=== PATIENT | female | born 1965 | race Two or more races ===

== ENCOUNTER → 2024-08-04 | Outpatient (CLI) | payer MEDICARE, MEDICAID, SELFPAY ==
[2024-08-04 14:48] LABS: Misc Send Out* See Sep Rpt
[2024-08-04 16:00] LABS: Basophils % (Auto) 1 % (0-2.5); Eosinophils # (Auto) 0.1 Thou/mm3 (0.0-0.5); Eosinophils % (Auto) 2 % (0-10); Hematocrit 39.7 % (36.0-46.0); Hemoglobin 13.3 g/dL (12.0-16.0); Immature Granulocytes % (Auto) 0 % (0-0); Immature Granulocytes Auto 0.03 Thou/mm3 (0.00-0.00); Lymphocytes # (Auto) 2.7 Thou/mm3 (1.0-4.8); Lymphocytes % (Auto) 31 % (10-50); Mean Corpuscular HGB Conc 33.5 g/dl (31.0-37.0); Mean Corpuscular Hemoglobin 28.1 pg (25.0-35.0); Mean Corpuscular Volume 84 fL (80-100); Monocytes # (Auto) 0.6 Thou/mm3 (0.0-0.8); Monocytes % (Auto) 7 % (0-12); Neutrophils # (Auto) 5.3 Thou/mm3 (1.8-7.7); Neutrophils % (Auto) 60 % (37-80); Nucleated Red Blood Cell % 0 /100 WBC (0); Platelet Count 181 Thou/mm3 (140-440); RDW Standard Deviation 40.5 fL (36.4-46.3); Red Blood Count 4.74 Miln/mm3 (4.00-5.20); White Blood Count 8.7 Thou/mm3 (3.6-11.0)
[2024-08-04 16:05] LABS: Prothrombin Time 11.4 Seconds (9.0-12.2)
[2024-08-04 16:31] LABS: Alanine Aminotransferase 15 U/L (10-49); Albumin, Serum 4.5 gm/dL (3.5-5.0); Alkaline Phosphatase 73 U/L (46-116); Aspartate Amino Transferase 21 U/L (0-34); Bilirubin,Direct 0.2 mg/dL (0.0-0.3); Bilirubin,Total 0.6 mg/dL (0.3-1.2); Potassium 4.7 mMol/L (3.4-5.1); Sodium 137 mMol/L (136-145); Total Protein 7.1 gm/dL (5.7-8.2)
[2024-08-10 06:59] LABS: Hepatitis A Antibody, Total* REACTIVE; Hepatitis B Core Ab,Total* NONREACTIVE
== END | disposition home or self-care (01) ==
LOC: COPL 13:55
PROVIDERS: PCP Nurse Practitioner Family; Referring Provider Nurse Practitioner Family; Visit Provider Nurse Practitioner Family
DX: K21.9 Gastro-esophageal reflux disease without esophagitis (principal); K74.60 Unspecified cirrhosis of liver
CPT/HCPCS: 36415; 80076; 81596; 82105; 83735; 84132; 84295; 85025; 85610; 86704; 86708

== ENCOUNTER → 2024-08-11 | Outpatient (CLI) | payer MEDICARE, MEDICAID, SELFPAY ==
--- NOTE | 2024-08-11 09:30 | XR_ITS ---
Examination: Abdomen sonogram, complete Date and time of exam: August 11, 2024 1026 hours INDICATIONS: Diagnosis cirrhosis several years ago. Technique: Multiple real-time grayscale transabdominal sonographic images of the abdomen have been obtained. Findings: Gallbladder not visualized Common bile duct incompletely visualized measuring 1.2 cm Pancreatic head 3.1 cm Aorta not enlarged Liver 14.7 cm fatty infiltration mildly lobular contour no focal liver lesions Normal hepatopedal portal venous flow Patent IVC Right kidney 8.6 x 4.7 x 3.6 cm renal cortex 1.1 cm Left kidney 10.2 x 4.5 x 3.2 cm renal cortex 1.6 cm Moderate renal parenchymal scar formation Spleen 10.1 cm IMPRESSION: Abnormally enlarged common bile duct 12 mm, clinical correlation advised, consider MRCP follow-up Liver 14.7 cm fatty infiltration lobular contour, primary hepatocellular disease pattern Small right kidney Bilateral renal cortical thinning Moderate bilateral renal parenchymal scar formation
== END | disposition home or self-care (01) ==
LOC: CDIM 09:59
PROVIDERS: PCP Internal Medicine Gastroenterology; Referring Provider Internal Medicine Gastroenterology; Visit Provider Internal Medicine Gastroenterology
DX: K76.0 Fatty (change of) liver, not elsewhere classified (principal); N28.89 Other specified disorders of kidney and ureter; K83.8 Other specified diseases of biliary tract
CPT/HCPCS: 76700

== ENCOUNTER → 2024-08-20 | Outpatient (BNVA) | payer MEDICARE, MEDICAID, SELFPAY | END | disposition home or self-care (01) | PROVIDERS: PCP Obstetrics & Gynecology; Referring Provider Obstetrics & Gynecology; Visit Provider Urology | DX: N39.0 Urinary tract infection, site not specified (principal); N27.0 Small kidney, unilateral; E11.9 Type 2 diabetes mellitus without complications; I10 Essential (primary) hypertension; Z94.4 Liver transplant status; Z87.440 Personal history of urinary (tract) infections; E78.00 Pure hypercholesterolemia, unspecified; K21.9 Gastro-esophageal reflux disease without esophagitis | CPT/HCPCS: 51701; 81003; 99212; G0463 ==

== ENCOUNTER → 2024-11-09 | Outpatient (CLI) | payer MEDICARE, SELFPAY ==
--- NOTE | 2024-11-09 10:00 | XR_ITS ---
Examination: MRI abdomen, without contrast Date and time of exam: November 09, 2024 1032 hours INDICATIONS: Onset right lower abdominal pain, months, enlarged common bile duct 12 mm on abdomen sonogram August 11, 2024 Technique: Multiple axial sagittal and coronal images of the abdomen have been obtained with the Siemens high-resolution 1.5 Rebeca MRI scanner. Images obtained include T2-weighted fat-suppressed sagittal sections, TR 3500, TE 46, T2 weighted coronal fat suppressed images, TR 3050, TE 84, T2-weighted transverse fat suppressed images, TR 3260, TE 63, proton density transverse images, TR 4720 TE 46, and T1 weighted coronal images, TR 560, TE 13. Findings: No focal liver or splenic lesion Normal sized common hepatic common bile duct no extrahepatic biliary stones No dilated pancreatic duct, no peripancreatic edema or pancreatic mass No ascites No hydronephrosis Aorta normal size IMPRESSION: No focal liver or splenic lesions No extrahepatic biliary tract obstruction, negative for common hepatic or common bile duct stones Negative for pancreatitis
== END | disposition home or self-care (01) ==
PROVIDERS: Referring Provider Internal Medicine Gastroenterology; Visit Provider Internal Medicine Gastroenterology
DX: R10.31 Right lower quadrant pain (principal); R10.13 Epigastric pain
CPT/HCPCS: 74181

== ENCOUNTER 2024-12-31 13:00 | Outpatient (RCR) | payer MEDICARE, MEDICAID, SELFPAY ==
--- NOTE | 2024-12-17 13:10 | PT.OIERPT ---
PT OP Initial Eval Patient Information Outpatient Physical Therapy Treatment Date: 12/17/24 Visit Reasons: Numbness in both hands Medical Diagnosis: R20.2 Treatment Dx #1: B hand weakness Treatment Dx #2: B hand pain Start of Care: 12/17/24 Date of Onset: 1 yr ago Smoking Status Smoking Status: Never smoker Initial Assessment Subjective: Pt is 59 yr old scottish speaking female who c/o B hand pain and numbness. The R hand index finger is the most painful. She reports B hand weakness and that she drops things. Pt is limited with HH chores to 5-10 mins when hands are painful. 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 Pt may benefit from skilled therapy to meet goals and has poor/fair rehab potential. Short Term and Retirement Goals 1. Ind with HEP 2. Improved school plant consultant strength B to at least 30 lbs 3. Pt will do HH chores x15 mins with <=3/10 B hand pain Treatment Plan ? 1. Manual therapy ? 2. Therex ? 3. Modalities as indicated, moist heat, ice, estim Frequency and Duration: 1-2x a week for 6 trial sessions. If progressing continue to 12. If not, reassess. Certification Dates: 12/17/24 to 03/17/25 Procedure Charges OP PT Eval Mod Complex 30 minutes: Yes
--- NOTE | 2024-12-31 13:57 | PT.ODAYNRPT ---
PT Outpatient Daily Note OP Daily Note Outpatient Physical Therapy Treatment Date: 12/31/24 Visit Reasons: Numbness in both hands Subjective: Pt reports B hand pain and pain is worse in the morning because hands are stiff and swollen. Objective: Please see flow sheet for ther ex list. Assessment: Pt instructed on light AROM and gripping interventions for hand, pt tolerated well. Plan: Continue with pOC. Length of Time (minutes) of Treatment: 30 Minutes Procedure Charges Therapeutic Exercise 30 minutes: Yes
== END 2025-01-06 23:59 | disposition home or self-care (01) ==
LOC: CPTX 13:00
DX: M79.642 Pain in left hand (principal); M79.641 Pain in right hand; R53.1 Weakness; R20.2 Paresthesia of skin; E11.9 Type 2 diabetes mellitus without complications
CPT/HCPCS: 97110; 97162

== ENCOUNTER 2025-01-09 13:55 | Emergency (ER) | payer MEDICARE, SELFPAY ==
[2025-01-09 14:19] VITALS: BP 130/77; PULSE 65; RESP 18; TEMP 36.6; O2SAT 98; BMI 29.5
--- NOTE | 2025-01-09 14:23 | XR_ITS ---
Examination: PA lateral chest 2 views TECHNIQUE: Upright PA and lateral chest 2 views Exam date and time: January 09, 2025, 1555 hours Comparison June 15, 2023 INDICATIONS: Weakness dizziness episodes 5 years FINDINGS: Normal heart size. Lungs are clear. Moderate osteopenia IMPRESSION: No active disease
--- NOTE | 2025-01-09 14:23 | EKG_ITS ---
[facility] Test Date: 2025-01-09 Pat Name: JOSTIN IRVING Department: Room: - Gender: Female Band Cutter: : 1965 Requested By: Chanell Ruano Order Number: [id number] Reading MD: Chanell Ruano Measurements Intervals Hagerman Rate: 60 P: 38 CO: 198 QRS: 44 QRSD: 100 T: 33 QT: 384 QTc: 385 Interpretive Statements SINUS RHYTHM NONSPECIFIC ST & T-WAVE ABNORMALITY No previous ECG available for comparison /store/S0/[id number]/ecg/[id number].pdf
--- NOTE | 2025-01-09 14:24 | PD.EDRME ---
Rapid Medical Screening Exam E Arrival date/time: 01/09/25 13:55 This is a 59-year-old female that comes in with complaints of dysuria. Patient states that about 2 weeks ago she was put on antibiotics for a UTI it did get better but the symptoms came back. Patient states this has happened before and she feels like the antibiotics sometimes do not help and her symptoms get worse. Patient also complains of feeling very dizzy and has had 2 near syncope episodes. Patient denies fever patient complains of abdominal pain and back pain. Patient does have a history of high blood pressure, diabetes, hyperlipidemia, and is status post liver transplant. I have greeted and performed a focused initial assessment of this patient. Initial appropriate labs ordered at this time. A comprehensive ED assessment and evaluation of the patient and analysis of all test and completion of medical decision making process will be conducted by additional ED provider. Chief Complaint: Urogenital-Female Time Seen by Provider: 01/09/25 14:06 Vital signs: Vital Signs Temperature 97.8 F 01/09/25 14:19 Pulse Rate 65 01/09/25 14:19 Respiratory Rate 18 01/09/25 14:19 Blood Pressure 130/77 01/09/25 14:19 Pulse Oximetry (%) 98 01/09/25 14:19 Oxygen Delivery Method Room Air 01/09/25 14:19
[2025-01-09 15:16] LABS: Basophils % (Auto) 0 % (0-2.5); Eosinophils # (Auto) 0.2 Thou/mm3 (0.0-0.5); Eosinophils % (Auto) 2 % (0-10); Hematocrit 40.5 % (36.0-46.0); Hemoglobin 13.8 g/dL (12.0-16.0); Immature Granulocytes % (Auto) 0 % (0-0); Immature Granulocytes Auto 0.03 Thou/mm3 (0.00-0.00); Lymphocytes # (Auto) 2.8 Thou/mm3 (1.0-4.8); Lymphocytes % (Auto) 32 % (10-50); Mean Corpuscular HGB Conc 34.1 g/dl (31.0-37.0); Mean Corpuscular Hemoglobin 28.6 pg (25.0-35.0); Mean Corpuscular Volume 84 fL (80-100); Monocytes # (Auto) 0.7 Thou/mm3 (0.0-0.8); Monocytes % (Auto) 8 % (0-12); Neutrophils # (Auto) 5.2 Thou/mm3 (1.8-7.7); Neutrophils % (Auto) 58 % (37-80); Nucleated Red Blood Cell % 0 /100 WBC (0); Platelet Count 186 Thou/mm3 (140-440); RDW Standard Deviation 42.6 fL (36.4-46.3); Red Blood Count 4.83 Miln/mm3 (4.00-5.20)
[2025-01-09 15:36] LABS: B-Type Natriuretic Peptide 22 pg/mL (0-100)
[2025-01-09 15:39] LABS: Alanine Aminotransferase 11 U/L (10-49); Albumin, Serum 4.3 gm/dL (3.5-5.0); Albumin/Globulin Ratio 1.5 (1.2-2.2); Alkaline Phosphatase 56 U/L (46-116); Anion Gap 9 (7-16); Aspartate Amino Transferase 21 U/L (0-34); BUN/Creatinine Ratio 11 Ratio (12-20); Bilirubin,Total 0.6 mg/dL (0.3-1.2); Blood Urea Nitrogen 9 mg/dL (9-23); Calcium 8.8 mg/dL (8.3-10.6); Calcium (Corrected) 8.8 mg/dL (8.5-10.1); Carbon Dioxide 25.9 mMol/L (20.0-31.0); Chloride 106 mMol/L (98-107); Creatinine (Component) 0.8 mg/dL (0.6-1.3); Estimated Creatinine Clearance 64.2 mL/min (>60); Globulin 2.8 gm/dL (2.3-3.5); Glucose 129 mg/dL (74-106); Lipase 198 U/L (12-53); Osmolality,Calculated 281 (275-295); Potassium 4.4 mMol/L (3.4-5.1); Sodium 141 mMol/L (136-145); Total Protein 7.1 gm/dL (5.7-8.2); Troponin I < 0.002 ng/mL (0.0-0.045); eGFR > 60 See Note
[2025-01-09 15:55] LABS: Collection Type, Urine Voided
[2025-01-09 16:08] VITALS: BP 128/83; PULSE 60; RESP 18; TEMP 36.5; O2SAT 99
--- NOTE | 2025-01-09 16:12 | PD.EDFMALE ---
ED Female Urogenital RME/HPI General Chief complaint: Urogenital-Female Stated complaint: UTI SYMPTOMS , ABD PAIN Time Seen by Provider: 01/09/25 14:06 Arrival date/time: 01/09/25 13:55 RME / HPI RME / HPI Narrative: 59-year-old female that comes in with complaints of dysuria. Patient states that about 2 weeks ago she was put on antibiotics for a UTI it did get better but the symptoms came back. Patient states this has happened before and she feels like the antibiotics sometimes do not help and her symptoms get worse. Patient also complains of feeling very dizzy and has had 2 near syncope episodes. Patient denies fever patient complains of abdominal pain and back pain. Patient does have a history of high blood pressure, diabetes, hyperlipidemia, and is status post liver transplant. Related Data Home Medications ?Medication ?Instructions ?Recorded ?Confirmed amlodipine 2.5 mg tablet 2.5 mg PO QDAY 07/10/22 08/20/24 atorvastatin 20 mg tablet 20 mg PO QDAY 07/10/22 08/20/24 cyclobenzaprine 5 mg tablet 5 mg PO TID MUSCLE SPASMS 07/10/22 08/20/24 docusate sodium 100 mg capsule 100 mg PO QDAY CONSTIPATION 07/10/22 08/20/24 gabapentin 300 mg tablet 300 mg PO TID 07/10/22 08/20/24 hydroxyzine HCl 25 mg tablet 25 mg PO HS PRN Sleep 07/10/22 08/20/24 lansoprazole 15 mg capsule,delayed 15 mg PO BID 07/10/22 08/20/24 release mycophenolate mofetil 250 mg 1,000 mg PO BID 07/10/22 08/20/24 capsule tacrolimus 1 mg capsule, 2 mg PO Q12H 07/10/22 08/20/24 immediate-release insulin aspart U-100 100 unit/mL 15 unit subcut TID 04/29/23 08/20/24 (3 mL) subcutaneous pen (Novolog FlexPen U-100 Insulin aspart) insulin detemir U-100 100 unit/mL 40 unit subcut QHS 04/29/23 08/20/24 subcutaneous solution (Levemir U-100 Insulin) prednisone 20 mg tablet 20 mg PO QDAY 04/29/23 05/06/23 estradiol 0.01% (0.1 mg/gram) 2 g vaginal DIRECTED 08/20/24 08/20/24 vaginal cream (Estrace) levothyroxine 75 mcg capsule 75 mcg PO QDAY 08/20/24 08/20/24 semaglutide 0.25 mg or 0.5 mg (2 0.5 mg subcut QWEEK 08/20/24 08/20/24 mg/3 mL) subcutaneous pen injector (Ozempic) Previous Rx's ?Medication ?Instructions ?Recorded rizatriptan 10 mg disintegrating 10 mg PO Q2H PRN migraine headache 06/12/23 tablet (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 GENERAL APPEARANCE: Alert and interactive, follows commands, no acute distress, HEAD AND FACE: Non-traumatic. ENT: PERRL, pink conjunctivitis, eyelid no trauma, Mucous membrane moist. NECK: Supple, nontender, no nuchal rigidity. CHEST: No tenderness, no crepitus, no paradoxical movement, no retractions. LUNGS: Clear, well ventilated, symmetric, no rales, no wheezing, no ronchi, no stridor, good breath sounds bilaterally. HEART: Regular rate, regular rhythm, no murmur, no gallops. ABDOMEN: Soft, positive bowel sounds, nondistended, no guarding, nontender, no rebound, no masses, RECTAL: Deferred. GENITAL: Deferred. NEUROLOGICAL: Gross motor function intact sensory function intact, Appropriate for age. MUSCULOSKELETAL: low back nontender, full range of motion. EXTREMITIES: Nontender, full range of motion. SKIN: Color pink, dry, no rash, no lacerations, no abrasions, no contusions. LYMPHATICS: Deferred. Course Quality Measures none Orders Category Date Time Status EKG (ED ONLY) *Do not use* NOW Care 01/09/25 14:23 Completed EKG (ED Only) Stat Exams 01/09/25 14:23 Draft XR chest 2V Stat Exams 01/09/25 14:23 Completed BNP [B-Type Natriuretic Peptide] Stat Lab 01/09/25 15:01 Completed CBC Stat Lab 01/09/25 15:01 Completed Comprehensive Metabolic Panel Stat Lab 01/09/25 15:01 Completed Lipase Stat Lab 01/09/25 15:01 Completed Troponin I Stat Lab 01/09/25 15:01 Completed Urinalysis, C/S if Indicated Stat Lab 01/09/25 15:25 Completed Urine Culture Stat Lab 01/09/25 15:25 Received cefuroxime axetiL [cefUROXime axetil] Med 01/09/25 17:02 Discontinued 500 mg PO X1 ONE Vital Signs Vital signs: Vital Signs Temperature 97.8 F 01/09/25 14:19 Pulse Rate 65 01/09/25 14:19 Respiratory Rate 18 01/09/25 14:19 Blood Pressure 130/77 01/09/25 14:19 Pulse Oximetry (%) 98 01/09/25 14:19 Oxygen Delivery Method Room Air 01/09/25 14:19 Urogenital - Female MDM Narrative MDM Narrative:: 59-year-old female that comes in with complaints of dysuria. Patient states that about 2 weeks ago she was put on antibiotics for a UTI it did get better but the symptoms came back. Patient states this has happened before and she feels like the antibiotics sometimes do not help and her symptoms get worse. Patient also complains of feeling very dizzy and has had 2 near syncope episodes. Patient denies fever patient complains of abdominal pain and back pain. Patient does have a history of high blood pressure, diabetes, hyperlipidemia, and is status post liver transplant. Patient's workup all came back unremarkable. For UTI patient's creatinine is normal Patient received cefuroxime p.o. Patient appears nontoxic and hemodynamically stable. Patient discharged home and instructed to follow-up with primary care provider in 24 to 48 hours. Instructed to return to the emergency department immediately if worsening of symptoms Patient data External records reviewed:: None Clinical information provided by:: patient Social determinants that could affect healthcare access:: none Patient has the following chronic illnesses:: Hypertension, history of liver transplant How is presenting disease/condition affected by chronic disease/condition?: exacerbated by Evaluation data The following diagnostics were reviewed and interpreted by me:: lab results, radiology exam(s) and EKG tracing(s) Lab and/or radiology exams considered but not ordered:: None Interpretation Summary: See results MDM Medications / Prescriptions Medications or Prescriptions considered but not ordered:: None Medication administrations:: Medication Administration History Discontinued Medications Cefuroxime Axetil (Cefuroxime Axetil 250 Mg Tablet) 500 mg PO X1 ONE Stop: 01/09/25 17:03 Cefuroxime Consultations Consultation(s) initiated? (list below): No Diagnosis Urogenital Female Differential Diagnosis: urinary tract infection, cervicitis and cystitis Most likely diagnosis given after review of the tests above:: uti Admission Indicated Admission indicated?: not indicated Admission Request Was there a request for admission?: No Disposition Plan Disposition Plan: Discharge Discharge Attestation Discharge Attestation: The patient and all family members were given an opportunity to ask questions and understood the discharge instructions. Discharge instructions specifically effects, indications for sooner follow up or return to the emergency department, and the expected course of current diagnosis. Patient condition: Stable Discharge Plan Plan Patient Disposition: HOME (Self Care) Discharge Disposition comment: Stable Prescriptions/Referrals Prescriptions/Med Rec: New cefuroxime axetil 500 mg tablet 500 mg PO BID Qty: 14 0RF No Action insulin aspart U-100 [Novolog FlexPen U-100 Insulin] 100 unit/mL (3 mL) insulin pen 15 unit subcut TID Levemir U-100 Insulin 100 unit/mL solution 40 unit subcut QHS prednisone 20 mg tablet 20 mg PO QDAY levothyroxine 75 mcg capsule 75 mcg PO QDAY Ozempic 0.25 mg or 0.5 mg (2 mg/3 mL) pen injector 0.5 mg subcut QWEEK estradiol [Estrace] 0.01 % (0.1 mg/gram) cream 2 g vaginal DIRECTED Patient Comments: Twice a week amlodipine 2.5 mg tablet 2.5 mg PO QDAY gabapentin 300 mg Tablet 300 mg PO TID atorvastatin 20 mg tablet 20 mg PO QDAY mycophenolate mofetil 250 mg capsule 1,000 mg PO BID lansoprazole 15 mg Capsule,Delayed Release(Dr/Ec) 15 mg PO BID docusate sodium 100 mg Capsule 100 mg PO QDAY hydroxyzine HCl 25 mg Tablet 25 mg PO HS PRN (Reason: Sleep) tacrolimus 1 mg capsule 2 mg PO Q12H cyclobenzaprine 5 mg tablet 5 mg PO TID rizatriptan [Maxalt-SILVER LAP MACHINE TENDER] 10 mg tablet,disintegrating 10 mg PO Q2H PRN (Reason: migraine headache) Qty: 20 0RF Rx Instructions: do not exceed 3 doses per 24 hrs Problem List Clinical Impression: Urinary tract infection Patient/Caregiver Discharge Instructions Discharge Activity: activity as tolerated Education Materials: Understanding Urinary Tract ... Additional Instructions: Thank you for the opportunity for serving you today. You are stable for discharged . 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
[2025-01-09 16:43] LABS: Bilirubin,Urine Negative (Negative); Blood,Urine Negative (Negative); Color,Urine Yellow (Lt Yel-Yel); Glucose, Urine Negative (Negative); Ketones,Urine Negative (Negative); Leukocyte Esterase,Urine Positive (Negative); Nitrite,Urine Negative (Negative); PH,Urine 6.5 (5.0-7.0); Protein,Urine Negative (Neg - Trace); RBC,Urine 10 /hpf (0-3); Specific Gravity,Urine 1.005 (1.001-1.035); Squamous Epithelial Cell,Urine 2 /hpf (0-5); Urobilinogen,Urine Negative mg/dL (0.0-1.0); WBC,Urine 27 /hpf (0-5)
[2025-01-09 16:44] LABS: Clarity,Urine Hazy (Clear/Hazy); Culture Indicated,Urine Yes
[2025-01-09] MEDS: cefuroxime axetiL 250 MG TABLET 500 MG PO (17:27)
== END 2025-01-09 18:37 | disposition home or self-care (01) ==
PROVIDERS: Nurse Practitioner Family; Emergency Provider Emergency Medicine
DX: N39.0 Urinary tract infection, site not specified (principal); R94.31 Abnormal electrocardiogram [ECG] [EKG]; R53.1 Weakness; R42 Dizziness and giddiness; I10 Essential (primary) hypertension; E78.5 Hyperlipidemia, unspecified
CPT/HCPCS: 36415; 71046; 80053; 81001; 83690; 83880; 84484; 85025; 87086; 93005; 99283; A9270

== ENCOUNTER 2025-01-13 13:00 | Outpatient (RCR) | payer MEDICARE, MEDICAID, SELFPAY ==
--- NOTE | 2025-01-07 13:33 | PT.ODAYNRPT ---
PT Outpatient Daily Note OP Daily Note Outpatient Physical Therapy Treatment Date: 01/07/25 Visit Reasons: numbness in both hands Subjective: Pt c/o hand pain and tingling and numbing. Objective: Please see flow sheet for ther ex list. Assessment: Light ROM and strengthening interventions aggravate symptoms. Plan: Continue with pOC. Length of Time (minutes) of Treatment: 30 Minutes Procedure Charges Therapeutic Exercise 30 minutes: Yes
--- NOTE | 2025-01-13 13:42 | PTNOTE_ITS ---
PT Outpatient Daily Note OP Daily Note Outpatient Physical Therapy Treatment Date: 01/13/25 Visit Reasons: numbness in both hands Subjective: Pt reports progress with symptoms. Objective: Please see flow sheet for ther ex list. 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 Plan: Continue with poC. Length of Time (minutes) of Treatment: 30 Minutes Procedure Charges Therapeutic Exercise 30 minutes: Yes
== END 2025-02-06 23:59 | disposition home or self-care (01) ==
LOC: CPTX 13:00
DX: M79.642 Pain in left hand (principal); M79.641 Pain in right hand; R53.1 Weakness; R20.2 Paresthesia of skin; E11.9 Type 2 diabetes mellitus without complications
CPT/HCPCS: 97110

== ENCOUNTER 2025-03-01 13:00 | Outpatient (RCR) | payer MEDICARE, SELFPAY ==
--- NOTE | 2025-02-09 16:18 | PT.ODAYNRPT ---
PT Outpatient Daily Note OP Daily Note Outpatient Physical Therapy Treatment Date: 02/09/25 Visit Reasons: Numbness in both hands Subjective: Pt reports hands continue to hurt and c/o weakness. Pt had a nerve conduction test done and will be receiving injections in the near future. Objective: Please see flow sheet for ther ex list. Assessment: Light AROM and gripping interventions performed. Plan: Continue with POC. Length of Time (minutes) of Treatment: 30 Minutes Procedure Charges Therapeutic Exercise 30 minutes: Yes
--- NOTE | 2025-02-16 15:06 | PT.ODAYNRPT ---
PT Outpatient Daily Note OP Daily Note Outpatient Physical Therapy Treatment Date: 02/16/25 Visit Reasons: Numbness in both hands Subjective: Pt reports hands are doing a little better. Objective: Please see flow sheet for ther ex list. Assessment: Intervention progression slow due to aggravating symptoms with light gripping exercises. Plan: Continue with poC. Length of Time (minutes) of Treatment: 30 Minutes Procedure Charges Therapeutic Exercise 30 minutes: Yes
--- NOTE | 2025-03-01 18:29 | PT.ODS1RPT ---
PT OP Progress/Discharge Note Date of Service: 03/01/25 Progress Note/DC Note Progress Note/Discharge Note: DC Note Patient Information Visit Reasons: Numbness in both hands Service Continue Service or Discharge: Discharge Discharge Date: 03/01/25 Status Subjective: Less B hand pain, wants to do HEP at home Objective: Rural Route Carrier strength: R: 35 lbs, L: 25 lbs Assessment: Pt has attended the eval and 6 Rx visits with good progress with pain and ad operations coordinator strength goals. Pt has improved ad operations coordinator strength of R hand by almost double to meet that goal. She is independent with HEP and can do HH chores x15 mins to meet those goals. Plan: D/C with HEP Procedure Charges Therapeutic Exercise 30 minutes: Yes
== END 2025-03-08 23:59 | disposition home or self-care (01) ==
LOC: CPTX 13:00
DX: M79.642 Pain in left hand (principal); M79.641 Pain in right hand; R20.2 Paresthesia of skin; R53.1 Weakness; R20.0 Anesthesia of skin; E11.9 Type 2 diabetes mellitus without complications
CPT/HCPCS: 97110

== ENCOUNTER 2025-08-09 18:26 | Emergency (ER) | payer MEDICARE, SELFPAY ==
[2025-08-09 18:26] VITALS: BMI 24.9
[2025-08-09 19:34] VITALS: BP 137/77; PULSE 84; RESP 18; TEMP 36.6; O2SAT 100
--- NOTE | 2025-08-09 19:40 | XR_ITS ---
Examination: CT brain head without contrast. 2-D sagittal coronal reconstructions Date and time of exam: August 09, 2025, 1947 hours INDICATIONS: Sudden onset head pain today COMPARISON: 05/11/2024 CTDI: vol (mGy): 43.8 DLP: (mGycm): 824 Technique: Multiple CT axial sections of the brain have been obtained, 5 mm slice thickness. Contrast has not been administered. 2-D sagittal, coronal reconstructions have been obtained Low dose protocols were performed. One or more of the following dose reduction techniques were used; automated exposure control, adjustment of the mA and/or KV according to patient size, use of iterative reconstruction technique. Findings: No significant ventricular enlargement. Atrophic calcified left optic globe Intra-axial or extra-axial hemorrhage density is not seen. No mass effect or midline shift Basal cisterns are not remarkable. Fourth ventricle is midline. Cranial vault intact. Impression: Negative for acute hemorrhage, mass effect or midline shift
--- NOTE | 2025-08-09 21:43 | PD.EDHA ---
ED Headache RME/HPI General Chief Complaint: Anxiety Stated Complaint: anxiety/stress Time Seen by Provider: 08/09/25 18:35 Arrival date/time: 08/09/25 18:26 This is a case of 60-year-old female who have history of hypertension came in in the emergency room due to headache today patient was at home when his son had anxiety attack and punched a wall and she started to have a headache with anxiety patient denies any chest pain palpitation shortness of breath numbness weakness tingling sensation or blurring of vision persistence of the symptoms this patient decided to start consult her in the emergency room Limitations: no limitations Related Data Home Medications ?Medication ?Instructions ?Recorded ?Confirmed amlodipine 2.5 mg tablet 2.5 mg PO QDAY 07/10/22 08/20/24 atorvastatin 20 mg tablet 20 mg PO QDAY 07/10/22 08/20/24 cyclobenzaprine 5 mg tablet 5 mg PO TID MUSCLE SPASMS 07/10/22 08/20/24 docusate sodium 100 mg capsule 100 mg PO QDAY CONSTIPATION 07/10/22 08/20/24 gabapentin 300 mg tablet 300 mg PO TID 07/10/22 08/20/24 hydroxyzine HCl 25 mg tablet 25 mg PO HS PRN Sleep 07/10/22 08/20/24 lansoprazole 15 mg capsule,delayed 15 mg PO BID 07/10/22 08/20/24 release mycophenolate mofetil 250 mg 1,000 mg PO BID 07/10/22 08/20/24 capsule tacrolimus 1 mg capsule, 2 mg PO Q12H 07/10/22 08/20/24 immediate-release insulin aspart U-100 100 unit/mL 15 unit subcut TID 04/29/23 08/20/24 (3 mL) subcutaneous pen (Novolog FlexPen U-100 Insulin aspart) insulin detemir U-100 100 unit/mL 40 unit subcut QHS 04/29/23 08/20/24 subcutaneous solution (Levemir U-100 Insulin) prednisone 20 mg tablet 20 mg PO QDAY 04/29/23 05/06/23 estradiol 0.01% (0.1 mg/gram) 2 g vaginal DIRECTED 08/20/24 08/20/24 vaginal cream (Estrace) levothyroxine 75 mcg capsule 75 mcg PO QDAY 08/20/24 08/20/24 semaglutide 0.25 mg or 0.5 mg (2 0.5 mg subcut QWEEK 08/20/24 08/20/24 mg/3 mL) subcutaneous pen injector (Ozempic) Previous Rx's ?Medication ?Instructions ?Recorded rizatriptan 10 mg disintegrating 10 mg PO Q2H PRN migraine headache 06/12/23 tablet (Maxalt-SCRATCH POLISHER) #20 tabs cefuroxime axetil 500 mg tablet 500 mg PO BID #14 tabs 01/09/25 hydroxyzine pamoate 25 mg capsule 25 mg PO BID PRN anxiety #10 caps 08/09/25 (Vistaril) ibuprofen 600 mg tablet 600 mg PO Q8H PRN pain #20 tabs 08/09/25 Allergies Allergy/AdvReac Type Severity Reaction Status Date / Time No Known Allergies Allergy Verified 08/20/24 11:13 Review of Systems Review of Systems Systems Reviewed: All systems reviewed, normal except as documented Constitutional Constitutional: Reports system reviewed and no additional complaints, except as documented, Reports as per HPI, Denies frequent falls, Reports headache(s) and Denies weakness Eyes Eyes: Denies loss of vision ENT Ears, Nose, Mouth, and Throat: Denies abnormal hearing, Denies disequilibrium, Denies dizziness, Reports headache(s) and Denies vertigo Cardiovascular Cardiovascular: Reports system reviewed and no additional complaints, except as documented, Reports as per HPI and Denies syncope Respiratory Respiratory: Reports system reviewed and no additional complaints, except as documented and Reports as per HPI Genitourinary Genitourinary: Denies change in libido Musculoskeletal Musculoskeletal: Reports system reviewed and no additional complaints, except as documented, Reports as per HPI, Denies abnormal gait, Denies numbness and Denies tingling Neurologic Neurologic: Reports system reviewed and no additional complaints, except as documented, Reports as per HPI, Denies abnormal gait, Denies abnormal hearing, Denies abnormal movements, Denies abnormal speech, Denies behavioral changes, Denies burning sensations, Denies confusion, Denies convulsions, Denies disequilibrium, Denies dizziness, Denies localized weakness, Denies frequent falls, Reports headache(s), Denies lack of coordination, Denies loss of vision, Denies memory loss, Denies numbness, Denies other visual disturbances, Denies paresthesias, Denies radicular pain, Denies restless legs, Denies seizure-like activity, Denies sensory deficit, Denies syncope, Denies tingling, Denies tremor(s), Denies vertigo and Denies weakness Psychiatric Psychiatric: Denies abnormal sleep pattern, Denies anhedonia, Reports anxiety, Denies auditory hallucinations, Denies behavioral changes, Denies change in appetite, Denies change in libido, Denies confusion, Denies depression, Denies difficulty concentrating, Denies hallucinations, Denies homicidal ideation, Denies hopelessness, Denies irritability, Denies memory loss, Denies mood swings, Denies panic attacks, Denies paranoia, Denies suicidal ideation, Denies tactile hallucinations and Denies visual hallucinations Endocrine Endocrine: Denies change in libido Past Medical History Past Medical History NEUROLOGIC: Negative Neurological Disorders or Seizures CARDIAC: Positive Cardiac Disorders, Hypercholesterolemia and Hypertension; Negative Congestive Heart Failure RESPIRATORY: Positive Pneumonia; Negative Chronic Obstructive Pulmonary Disease (COPD) or Asthma GASTROINTESTINAL: Positive Gastrointestinal Disorders, Cirrhosis (liver transplant) and Gastroesophageal Reflux Disease; Negative Hepatitis, Celiac Disease, Gall Bladder Disease, Esophageal Varices, Monroe's Esophagus, Colitis, Diverticulitis, Diverticulosis or Crohn's Disease GENITOURINARY: Negative Genitourinary Disorders or Renal Disease REPRODUCTIVE: Positive Previous Pregnancies; Negative Endometriosis, Pelvic Inflammatory Disease or Uterine Prolapse MUSCULOSKELETAL: Negative Musculoskeletal Disorders ENT: Positive Blind (left eye); Negative Cataracts, Glaucoma, Retinal Detachment, Macular Degeneration, Ear Infection, Deafness or Eye Prosthesis ENDOCRINE: Positive Endocrine Disorders, Diabetes Mellitus Type 2, Hyperthyroidism and Hypothyroidism; Negative Diabetes Mellitus Type 1 HEMATOLOGIC: Negative Blood Disorders, Anemia or Sickle Cell Disease OTHER HISTORY: Positive Organ Transplant (Liver); Negative Autoimmune Disease, Blood Transfusions, Blood Transfusion Reaction, Anesthesia Reactions, Chemotherapy, Radiation Therapy, Hyperbaric Therapy, MRSA, VRSA, Vancomycin-Resistant Enterococci, Human Immunodeficiency Virus (HIV), Chicken Pox, Measles, Mumps, Rubella (Faroese Measles), Pertussis, Clostridium Difficile or Cancer Family History FAMILY HISTORY: Positive Family Cardiac Disorders, Family Gastrointestinal Problems and Family Surgery; Negative Family Psychiatric Problems, Family Respiratory Disorders, Family Cancer or Family Anesthesia Reaction Surgical History SURGICAL: Positive Eye Surgery (left eye), Section and Organ Transplant (Liver); Negative Cardiac Surgery, Endocrine Surgery, Ear Surgery, Nose Surgery, Oral Surgery, Tonsillectomy, Adenoidectomy, Cochlear Implant, Corneal Transplant, Throat Surgery, Abdominal Surgery, Tracheostomy, Nephrectomy, Joint Replacement, Neurologic Surgery, Mastectomy, Lumpectomy, Hysterectomy or Tubal Ligation Social History SMOKING STATUS: Never smoker SECOND HAND EXPOSURE: Yes SUBSTANCE USE: does not use ED Exam General Limitations: Present no limitations General appearance: Present alert, in no apparent distress and other (Patient is awake alert oriented not in distress nontoxic looking well-hydrated well nousrished) Head Head exam: Present atraumatic, normocephalic and normal inspection Eye Eye exam: Present normal appearance, PERRL, EOMI and other (perr eom intact no papiledema no hyphema) ENT ENT exam: Present normal exam, normal oropharynx and mucous membranes moist; Absent mucous membranes dry or TM's normal bilaterally Neck Neck exam: Present normal inspection, full ROM, trachea midline and other (Negative for meningeal sign); Absent tenderness, meningismus, lymphadenopathy or thyromegaly Chest Chest inspection: Present normal inspection and symmetric chest wall rise; Absent tenderness Respiratory Respiratory exam: Present normal lung sounds bilaterally; Absent respiratory distress, wheezes, stridor, accessory muscle use or prolonged expiratory phase Cardiovascular Cardiovascular exam: Present regular rate, normal rhythm and normal heart sounds; Absent bradycardia, tachycardia, irregular rhythm, systolic murmur or diastolic murmur Abdominal Exam Abdominal exam: Present soft and normal bowel sounds; Absent distention, tenderness, guarding, rebound, rigidity, diminished bowel sounds, hyperactive bowel sounds, hypoactive bowel sounds or organomegaly Extremities Exam Extremities exam: Present normal inspection and full ROM Back Exam Back exam: Present normal inspection and full ROM Neurological Exam Neurological exam: Present alert, oriented X3, CN II-XII intact, normal gait, reflexes normal and other (Awake alert oriented x 4 no focal deficit GCS 15/15 steady gait memory intact no slurring speech no facial droop motor or sensory reflex in all extremities normal negative Babinski); Absent motor sensory deficit Psychiatric Psychiatric exam: Present normal affect, normal mood, anxious and other (No hallucination); Absent depressed, agitated, flat affect, manic, homicidal ideation or suicidal ideation Skin Skin exam: Present warm, dry, intact and normal color Course Quality Measures none Orders Category Date Time Status CT head/brain wo con Stat Exams 08/09/25 19:40 Completed Ibuprofen Tab [Motrin Tab] Med 08/09/25 21:39 Discontinued 800 mg PO X1 ONE LORazepam [Ativan] Med 08/09/25 21:39 Discontinued 1 mg PO X1 ONE Vital Signs Vital signs: Vital Signs Temperature 97.9 F 08/09/25 19:34 Pulse Rate 84 08/09/25 19:34 Respiratory Rate 18 08/09/25 19:34 Blood Pressure 137/77 H 08/09/25 19:34 Pulse Oximetry (%) 100 08/09/25 19:34 Oxygen Delivery Method Room Air 08/09/25 19:34 Oxygen saturation is 100% room air Headache MDM Narrative MDM Narrative:: This is a case of 60-year-old female who have history of hypertension came in in the emergency room due to headache today patient was at home when his son had anxiety attack and punched a wall and she started to have a headache with anxiety patient denies any chest pain palpitation shortness of breath numbness weakness tingling sensation or blurring of vision persistence of the symptoms this patient decided to start consult her in the emergency room physical examination patient is awake alert oriented not in distress nontoxic looking well-hydrated well-nourished vital signs stable BP stable not tachycardic not tachypneic afebrile and nonhypoxic patient neurological exam is normal awake alert oriented x 4 no focal deficit GCS 15/15 steady gait memory intact no slurring of speech no facial droop motor or sensory reflex were all normal in all extremities CN II to XII is normal negative Babinski lungs sound is clear heart normal rate regular rhythm no murmur patient is mildly anxious but no suicidal no homicidal ideation no hallucination the rest of the physical examination and neurological exam is normal and unremarkable patient CT scan of the head were normal patient was given ibuprofen and anxiety medication which is Ativan which patient condition markedly improved and resolved patient will follow-up with PCP in 2 days for reevaluation and for any worsening symptoms or any emergent concern return precaution in the ER is aadvsied Patient was discharged with comfortable condition walking with stable gait. Patient verbalized no further complains explained diagnosis and answered patient question. Patient is comfortable with the proposed management plan including the need to follow up with his/her primary care physician and any specialist if applicable Discussed patient for any urgent condition or worsening sx, He/She needed to go to emergency room immediately or call 911. Patient acknowledge the responsibility to follow up as instructed and to monitor her/his symptoms. For any persistence of the symptoms for more than 3-5 days return precaution advised. Discussed the result of the test and was given printed discharge instruction Patient data External records reviewed:: [facility] previous records Clinical information provided by:: patient Social determinants that could affect healthcare access:: none Patient has the following chronic illnesses:: None How is presenting disease/condition affected by chronic disease/condition?: no chronic disease Evaluation data The following diagnostics were reviewed and interpreted by me:: radiology exam(s) Lab and/or radiology exams considered but not ordered:: Reviewed Interpretation Summary: Reviewed Medications / Prescriptions Medications or Prescriptions considered but not ordered:: Given Medication administrations:: Medication Administration History Discontinued Medications Ibuprofen (Ibuprofen Tab 400 Mg Tablet) 800 mg PO X1 ONE Stop: 08/09/25 21:40 Lorazepam (Lorazepam 0.5 Mg Tablet) 1 mg PO X1 ONE Stop: 08/09/25 21:40 Given Consultations Consultation(s) initiated? (list below): No Diagnosis Differential diagnosis headache: migraine, tension headache, headache and sinusitis Most likely diagnosis given after review of the tests above:: Headache anxiety Admission Indicated Admission indicated?: not indicated Explain why admission is indicated or not indicated:: not indicated Admission Request Was there a request for admission?: No Admission Attestation Admission request attestation: not indicated Disposition Plan Disposition Plan: Discharge Discharge Attestation Discharge Attestation: The patient and all family members were given an opportunity to ask questions and understood the discharge instructions. Discharge instructions specifically effects, indications for sooner follow up or return to the emergency department, and the expected course of current diagnosis. Patient condition: Stable Discharge Plan Plan Patient Disposition: HOME (Self Care) Patient condition on transfer: Stable Prescriptions/Referrals Prescriptions/Med Rec: New hydroxyzine pamoate [Vistaril] 25 mg capsule 25 mg PO BID PRN (Reason: anxiety) Qty: 10 0RF ibuprofen 600 mg tablet 600 mg PO Q8H PRN (Reason: pain) Qty: 20 0RF No Action insulin aspart U-100 [Novolog FlexPen U-100 Insulin] 100 unit/mL (3 mL) insulin pen 15 unit subcut TID Levemir U-100 Insulin 100 unit/mL solution 40 unit subcut QHS prednisone 20 mg tablet 20 mg PO QDAY levothyroxine 75 mcg capsule 75 mcg PO QDAY Ozempic 0.25 mg or 0.5 mg (2 mg/3 mL) pen injector 0.5 mg subcut QWEEK estradiol [Estrace] 0.01 % (0.1 mg/gram) cream 2 g vaginal DIRECTED Patient Comments: Twice a week amlodipine 2.5 mg tablet 2.5 mg PO QDAY gabapentin 300 mg Tablet 300 mg PO TID atorvastatin 20 mg tablet 20 mg PO QDAY mycophenolate mofetil 250 mg capsule 1,000 mg PO BID lansoprazole 15 mg Capsule,Delayed Release(Dr/Ec) 15 mg PO BID docusate sodium 100 mg Capsule 100 mg PO QDAY hydroxyzine HCl 25 mg Tablet 25 mg PO HS PRN (Reason: Sleep) tacrolimus 1 mg capsule 2 mg PO Q12H cyclobenzaprine 5 mg tablet 5 mg PO TID rizatriptan [Maxalt-SCRATCH POLISHER] 10 mg tablet,disintegrating 10 mg PO Q2H PRN (Reason: migraine headache) Qty: 20 0RF Rx Instructions: do not exceed 3 doses per 24 hrs cefuroxime axetil 500 mg tablet 500 mg PO BID Qty: 14 0RF Referrals: Jo Karimi MD [Primary Care Provider] - In 1 week Problem List Clinical Impression: Headache, Anxiety Patient/Caregiver Discharge Instructions Education Materials: Self-Care for Headaches, ED Anxiety Reaction Additional Instructions: Follow-up with your primary care physician in 2 days for reevaluation and to be referred to a psychiatrist psychologist for anxiety and to be referred to a neurologist for headache recurrence persistent worsening symptoms or any emergent concern call 911 or go to the nearest emergency room take your medication as directed keep hydrated Print Language: Ecuadorean Stand Alone Forms: Alley Award Info., Patient Portal Info Letter PA/GAS FITTER APPRENTICE Supervising Physician PA/GAS FITTER APPRENTICE Supervising Physician: dr jacob harding
[2025-08-09] MEDS: IBUPROFEN TAB 400 MG TABLET 800 MG PO (22:20)
== END 2025-08-09 22:28 | disposition home or self-care (01) ==
PROVIDERS: Emergency Provider Emergency Medicine; PCP Obstetrics & Gynecology
DX: F41.9 Anxiety disorder, unspecified (principal); R51.9 Headache, unspecified
CPT/HCPCS: 70450; 99282; A9270